=== PATIENT | female | born 1980 | race Caucasian/White ===

== ENCOUNTER 2019-10-10 18:19 | Emergency (ER) | payer OTHER, MEDICAID ==
[~2019-10-10] VITALS: Ht 160 cm; Wt 105.8 kg
--- NOTE | 2019-10-10 18:43 | ED GU-Female ---
General Chief Complaint: Female Reproductive Stated Complaint: VAGINAL BLEEDING/OB Source: patient Exam Limitations: no limitations History of Present Illness Date Seen by Provider: Oct 10, 2019 Time Seen by Provider: 18:39 Initial Comments 39-year-old at 6 weeks and EDC of June 05, presents with vaginal spotting occurring just prior to arrival. When using the restroom, she noticed on toilet tissue. Denies any specific abdominal pain, however she does admit for the last week she's had intermittent lower abdominal cramping without bleeding. She did have intercourse 2 days ago without any trauma or pain. OB is Dr Blanca Allergies and Home Medications Patient Home Medication List Home Medication List Reviewed: Yes Review of Systems Review of Systems Constitutional: No fever, No malaise, No weakness Cardiovascular: No chest pain, No edema, No palpitations Gastrointestinal: No abdominal pain, No constipation, No diarrhea, No loss of appetite, No nausea, No vomiting Genitourinary: see HPI; denies dysuria, denies frequency, denies flank pain Musculoskeletal: No back pain, No joint pain Skin: No change in color, No rash Past Kvjuiye-Qgocvp-Pnmyaw Hx Past Med/Social Hx: Reviewed Nursing Past Med/Soc Hx Patient Social History Recent Foreign Travel: No Contact w/Someone Who Travel: No Physical Exam Vital Signs Vital Signs - First Documented 10/10/19 18:25 Temp 36.8 Pulse 67 Resp 16 B/P (MAP) 121/78 (92) Pulse Ox 98 O2 Delivery Room Air Capillary Refill : Height, Weight, BMI Height: '" Weight: lbs. oz. kg; BMI Method: General Appearance: WD/WN, no apparent distress Cardiovascular: regular rate, rhythm, no edema Respiratory: chest non-tender, lungs clear Gastrointestinal: non tender, soft; No distended, No guarding, No rebound, No tenderness Progress/Results/Core Measures Suspected Sepsis SIRS Temperature: Pulse: Respiratory Rate: Blood Pressure / Mean: Results/Orders Lab Results Laboratory Tests Test 10/10/19 18:30 10/10/19 18:35 Range/Units Urine Color VIKRAM H Urine Clarity CLOUDY Urine pH 5.5 5-9 Urine Specific [place] >=1.030 1.016-1.022 Urine Protein TRACE H NEGATIVE Urine Glucose (UA) NEGATIVE NEGATIVE Urine Ketones 1+ H NEGATIVE Urine Nitrite NEGATIVE NEGATIVE Urine Bilirubin 1+ H NEGATIVE Urine Urobilinogen 0.2 < = 1.0 MG/DL Urine Leukocyte Esterase NEGATIVE NEGATIVE Urine RBC (Auto) 3+ H NEGATIVE Urine RBC TNTC H /HPF Urine WBC 0-2 /HPF Urine Squamous Epithelial Cells 2-5 /HPF Urine Crystals NONE /LPF Urine Bacteria FEW H /HPF Urine Casts NONE /LPF Urine Mucus SMALL H /LPF Urine Culture Indicated NO Human Chorionic Gonadotropin, Quant 96453 H <5 MIU/ML My Orders Orders - TIGIST MIR DO Hcg,Quantitative (10/10/19 18:38) Urinalysis (10/10/19 18:38) Vital Signs/I&O 10/10/19 10/10/19 18:25 19:44 Temp 36.8 Pulse 67 68 Resp 16 18 B/P (MAP) 121/78 (92) 120/80 Pulse Ox 98 99 O2 Delivery Room Air Room Air Capillary Refill : Progress Note : Progress Note Explained to the patient due to limitations at this facility we do not have ultrasound capability to evaluate her only . She understands this limitation of her evaluation today. Discussed and advised importance of follow- up in 2 days with OB or sooner if bleeding becomes more severe or painful. Quant - 50k (c/w dates) Departure Impression Primary Impression: Threatened miscarriage in early Disposition: 01 HOME, SELF-CARE Condition: Stable Departure-Patient Inst. Referrals: NO,LOCAL PHYSICIAN (PCP/Family) Primary Care Physician Add. Discharge Instructions: See Dr Blanca in 2 days for re-evaluation of your vaginal bleeding. You will need a repeat "Quant HCG" All discharge instructions reviewed with patient and/or family. Voiced understanding. TIGIST MIR DO Oct 10, 2019 18:43
[2019-10-10 18:56] LABS: CLARITY,URINE CLOUDY; COLOR,URINE AMBER; GLUCOSE, URINE (UA) NEGATIVE (NEGATIVE); KETONES,URINE 1+ (NEGATIVE); NITRITE,URINE NEGATIVE (NEGATIVE); PH,URINE 5.5 (5-9); PROTEIN,URINE TRACE (NEGATIVE)
[2019-10-10 18:57] LABS: BACTERIA,URINE FEW /HPF; BILIRUBIN,URINE 1+ (NEGATIVE); LEUKOCYTE ESTERASE ,URINE NEGATIVE (NEGATIVE); RBC,URINE TNTC /HPF; WBC,URINE 0-2 /HPF
--- NOTE | 2019-10-10 18:57 | NUR ---
Report to Sarai MARSH.
[2019-10-10 19:44] VITALS: BP 120/80
--- OUTSIDE RECORDS SUMMARY | 2019-10-10 21:53 | XMS REPORT | Continuity of Care Document ---
Author Organization Unknown Address Unknown Phone Unavailable Allergies There is no data. Medications There is no data. Problems There is no data. Procedures There is no data. Results Test Result Range GC/CHLAMYDIA (SWAB OR URINE)-RAPID - 09:36 CHLAMYDIA TRACHOMATIS RNA, TMA NOT DETECTED NOT DETECTED NEISSERIA GONORRHOEAE RNA, TMA NOT DETECTED NOT DETECTED COMMENT NRG SUREPATH PAP RFX HPV mRNA E6/E7 - 09:36 CLINICAL INFORMATION: NRG LMP: NRG PREV. PAP: NRG PREV. 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 COMMENT NRG ANTI C3 AND ANTI IGG - 09/27/19 14:57 ANTI COMPLEMENT POSITIVE NEGATIVE ANTI-IGG NEGATIVE NEGATIVE Complete urinalysis with reflex to cultu re - 10/10/19 18:30 Urine color determination VIKRAM NRG Urine clarity determination CLOUDY NR G Urine pH measurement by test strip 5.5 5-9 Specific gravity of urine by test strip >= 1.016-1.022 Urine protein assay by test strip, semi-quantitative TRACE NEGATIVE Urine glucose detection by automated test strip NE GATIVE NEGATIVE Erythrocytes detection in urine sediment by light micr oscopy 3+ NEGATIVE Urine ketones detection by automated test strip 1+ NEGATIVE Urine nitrite detection by test strip NEGATIVE NEGATIVE Urine total bilirubin detection by test strip 1+ NEGATIVE Urine urobilinogen measurement by automated test strip (mass/volume) 0.2 mg/dL < = 1.0 Urine leukocyte esterase detection by dipstick NEG ATIVE NEGATIVE Automated urine sediment erythrocyte cou nt by microscopy (number/high power field) TNTC NRG Automated urine sediment leukocyte count by microscopy (number/high power field) [HPF] NRG Bacteria detection in urine sediment by light microsco py FEW NRG Squamous epithelial cells detection in u rine sediment by light microscopy 2-5 NRG Crystals detection in urine sediment by light microsco py NONE NRG Casts detection in urine sediment by light microscopy NONE NRG Mucus detection in urine sediment by light microscopy SMALL NRG Complete urinalysis with reflex to culture NO NRG Serum or plasma choriogonadotropin measu rement (units/volume) - 10/10/19 18:35 Serum or plasma choriogonadotropin measurement (units/ volume) 46090 m[iU]/mL <5 Encounters ACCT No. Visit Date/Time Discharge Status Pt. Type Provider Facility Loc./Unit Complaint [id number] 09/27/2019 13:45:00 09/27/2019 23:59:5 9 [facility] Outpatient FELTON HUSAIN [facility] [id number] 09/27/2019 13:45:00 Document Registration [id number] 10/10/2019 18:22:00 020 19:44:00 DIS Emergency TIGIST MIR DO [facility] ER FS VAGINAL BLEEDIN G/OB
== END 2019-10-10 19:44 | disposition home or self-care (01) ==
LOC: ER FS 18:22
DX: O20.0 Threatened abortion (principal); Z3A.01 Less than 8 weeks gestation of pregnancy
CPT/HCPCS: 36415; 81000; 84702; 99282

== ENCOUNTER 2021-07-19 01:36 | Emergency (ER) | payer OTHER, MEDICAID ==
[~2021-07-19] VITALS: Ht 162 cm; Wt 84.0 kg
--- NOTE | 2021-07-19 01:56 | ED EENT ---
History of Present Illness General Chief Complaint: Foreign Body Stated Complaint: SOMETHING IN L EAR Nursing Triage Note: Patient states she can feel something moving in her left ear. She states incident occurred approximately one hour ago. History of Present Illness Date Seen by Provider: Jul 19, 2021 Time Seen by Provider: 01:40 Initial Comments 41-year-old female presents with foreign body in her left ear. Patient reports that she can feel something moving her left ear. That started about an hour ago. Patient reports that cause her some pain. No other complaints Allergies and Home Medications Patient Home Medication List Home Medication List Reviewed: Yes Review of Systems Review of Systems Constitutional: see HPI Ears: See HPI Nose: no symptoms reported Mouth: no symptoms reported Throat: no symptoms reported Respiratory: no symptoms reported Cardiovascular: no symptoms reported Gastrointestinal: no symptoms reported Past Jqchsow-Tlbofe-Cbcgbf Hx Patient Social History Tobacco Use?: No Use of E-Cig and/or Vaping dev: Yes Substance use?: No Alcohol Use?: No Seasonal Allergies Seasonal Allergies: No Past Medical History Surgery/Hospitalization HX: Surgeries: Yes (C/S x 3, Carpal tunnel bilateral) Section, Orthopedic Respiratory: No Cardiac: No Neurological: No Gastrointestinal: No Musculoskeletal: No Endocrine: No HEENT: No Cancer: No Psychosocial: No Integumentary: No Blood Disorders: No Physical Exam Vital Signs Vital Signs - First Documented 07/19/21 01:44 Pulse 70 Resp 16 B/P (MAP) 144/85 (104) Pulse Ox 97 O2 Delivery Room Air Height, Weight, BMI Height: '" Weight: lbs. oz. kg; 32.00 BMI Method: General Appearance: WD/WN, no apparent distress Ears: left ear foreign body (Insect) Neck: full range of motion Cardiovascular: normal peripheral pulses, regular rate, rhythm Neurologic/Psychiatric: alert, normal mood/affect, oriented x 3 Skin: normal color, warm/dry Procedures/Interventions Ear : Ear Location: Left Foreign Body Removal: FB in the Ear Canal Use of: Forceps Progress/Conclusion Patient with insect in left ear. Insect was killed using lidocaine and then removed with alligator forceps. Patient tolerated with no immediate complication Progress/Results/Core Measures Results/Orders Vital Signs/I&O 07/19/21 01:44 Pulse 70 Resp 16 B/P (MAP) 144/85 (104) Pulse Ox 97 O2 Delivery Room Air Blood Pressure Mean: 104 Departure Impression Primary Impression: Foreign body in ear Qualified Codes: T16.2XXA - Foreign body in left ear, initial encounter Disposition: 01 HOME, SELF-CARE Condition: Stable Departure-Patient Inst. Referrals: SELF,CHRISTIANO GONZALES (PCP/Family) Primary Care Physician Patient Instructions: Removal of Foreign Body in Ear, Child Add. Discharge Instructions: Follow-up with primary care provider as needed All discharge instructions reviewed with patient and/or family. Voiced understanding. Scripts Ofloxacin (Ofloxacin) 5 Ml Drops 5 ML OP BID for 7 Days, #1 EACH 5 drops to the left ear twice daily for 7 days Prov: ASHLEY CASTRO DO 07/19/21 ASHLEY CASTRO DO Jul 19, 2021 01:56
[2021-07-19] MEDS ORDERED: OFLO5DRO3 OP (02:00)
[2021-07-19 02:01] VITALS: BP 144/85
== END 2021-07-19 02:05 | disposition home or self-care (01) ==
LOC: EDUNIT# 01:36 → ER FS 01:38
DX: T16.2XXA Foreign body in left ear, initial encounter (principal)
CPT/HCPCS: 99282

== ENCOUNTER 2022-01-14 20:56 | Emergency (ER) | payer OTHER, MEDICAID ==
[~2022-01-14 20:56] MED LIST: OFLO5DRO3 OP
--- NOTE | 2022-01-14 20:59 | ED EENT ---
History of Present Illness General Stated Complaint: R EAR ISSUES History of Present Illness Date Seen by Provider: Jan 14, 2022 Time Seen by Provider: 20:59 Initial Comments 41-year-old female presents with concerns or might be some in her right ear. Patient felt something in her hair inflicted and then she thought she heard some buzzing in her ear. Maybe some movement. This happened just prior to arrival. She reports that she really does not feel it as much now but wants to have it evaluated. Allergies and Home Medications Patient Home Medication List Home Medication List Reviewed: Yes Ofloxacin (Ofloxacin) 5 Ml Drops, 5 ML OP BID Prescribed by: ASHLEY CASTRO on 07/19/21 0200 Review of Systems Review of Systems Constitutional: no symptoms reported Ears: See HPI Nose: no symptoms reported Respiratory: no symptoms reported Cardiovascular: no symptoms reported Gastrointestinal: no symptoms reported Past Jgvvelw-Skharo-Wuvbba Hx Seasonal Allergies Seasonal Allergies: No Past Medical History Surgery/Hospitalization HX: Surgeries: Yes (C/S x 3, Carpal tunnel bilateral) Section, Orthopedic Respiratory: No Cardiac: No Neurological: No Gastrointestinal: No Musculoskeletal: No Endocrine: No HEENT: No Cancer: No Psychosocial: No Integumentary: No Blood Disorders: No Physical Exam Height, Weight, BMI Height: '" Weight: lbs. oz. kg; 32.00 BMI Method: General Appearance: WD/WN Ears: bilateral ear canal normal, bilateral ear TM normal Cardiovascular: normal peripheral pulses, regular rate, rhythm Respiratory: no respiratory distress, no accessory muscle use Neurologic/Psychiatric: alert, normal mood/affect Skin: normal color, warm/dry Progress/Results/Core Measures Progress Progress Note : Progress Note Patient with no foreign body or insect in her ear. Patient discharged home Departure Impression Primary Impression: Ear discomfort Qualified Codes: H92.01 - Otalgia, right ear Disposition: HOME, SELF-CARE Condition: Stable Departure-Patient Inst. Referrals: SELF,CHRISTIANO GONZALES (PCP/Family) Primary Care Physician Add. Discharge Instructions: Follow-up with your primary care provider as needed ASHLEY CASTRO DO Jan 14, 2022 20:59
[2022-01-14 21:04] VITALS: BP 135/86
== END 2022-01-14 21:08 | disposition home or self-care (01) ==
LOC: EDUNIT# 20:56 → ER FS 20:57
DX: H92.01 Otalgia, right ear (principal); Z28.310 Unvaccinated for COVID-19
CPT/HCPCS: 99281

== ENCOUNTER 2022-05-30 03:39 | Emergency (ER) | payer OTHER, MEDICAID ==
[~2022-05-30] VITALS: Ht 167 cm; Wt 92.0 kg
--- NOTE | 2022-05-30 03:57 | ED GI ---
General Stated Complaint: ABDO PAIN History of Present Illness Date Seen by Provider: May 30, 2022 Time Seen by Provider: 03:51 Initial Comments 42-year-old female is here with complaints of abdominal pain which began around midnight, along with gas and indigestion. Patient had tacos for dinner. Abdominal pain is generalized but mainly in the the upper half of the abdomen. Denies fever or chills, nausea, vomiting, chest pain, palpitations, shortness of breath, diarrhea, constipation. No known sick contacts. Allergies and Home Medications Allergies Coded Allergies: No Known Drug Allergies (Unverified , 05/30/22) Patient Home Medication List Home Medication List Reviewed: Yes Ofloxacin (Ofloxacin) 5 Ml Drops, 5 ML OP BID Prescribed by: ASHLEY CASTRO on 07/19/21 0200 Review of Systems Review of Systems Constitutional: no symptoms reported EENTM: No Symptoms Reported Respiratory: No Symptoms Reported Cardiovascular: No Symptoms Reported Gastrointestinal: Abdominal Pain Genitourinary: No Symptoms Reported Musculoskeletal: no symptoms reported Skin: no symptoms reported Psychiatric/Neurological: No Symptoms Reported Endocrine: No Symptoms Reported Hematologic/Lymphatic: No Symptoms Reported Past Kqnozws-Gaspqo-Hpgpqt Hx Seasonal Allergies Seasonal Allergies: No Past Medical History Surgery/Hospitalization HX: Surgeries: Yes (C/S x 3, Carpal tunnel bilateral) Section, Orthopedic Respiratory: No Cardiac: No Neurological: No Gastrointestinal: No Musculoskeletal: No Endocrine: No HEENT: No Cancer: No Psychosocial: No Integumentary: No Blood Disorders: No Physical Exam Vital Signs Vital Signs - First Documented 05/30/22 03:49 Temp 37.0 Pulse 57 Resp 18 B/P (MAP) 156/83 (107) Pulse Ox 97 O2 Delivery Room Air Capillary Refill : Height/Weight/BMI Height: '" Weight: lbs. oz. kg; 32.00 BMI Method: General Appearance: WD/WN, no apparent distress, obese HEENT: PERRL/EOMI Neck: non-tender Respiratory: lungs clear Cardiovascular: normal peripheral pulses, regular rate, rhythm Gastrointestinal: normal bowel sounds, soft, tenderness (Generalized abdominal tenderness present) Extremities: normal range of motion Back: normal inspection, no CVA tenderness, no vertebral tenderness Neurologic/Psychiatric: alert, normal mood/affect, oriented x 3 Skin: normal color Progress/Results/Core Measures Results/Orders Lab Results Laboratory Tests Test 05/30/22 03:54 05/30/22 04:20 Range/Units White Blood Count 8.0 4.3-11.0 10^3/uL Red Blood Count 4.90 3.80-5.11 10^6/uL Hemoglobin 12.8 11.5-16.0 g/dL Hematocrit 39 35-52 % Mean Corpuscular Volume 79 L 80-99 fL Mean Corpuscular Hemoglobin 26 25-34 pg Mean Corpuscular Hemoglobin Concent 33 32-36 g/dL Red Cell Distribution Width 13.4 10.0-14.5 % Platelet Count 241 130-400 10^3/uL Mean Platelet Volume 9.2 9.0-12.2 fL Immature Granulocyte % (Auto) 0 % Neutrophils (%) (Auto) 54 42-75 % Lymphocytes (%) (Auto) 29 12-44 % Monocytes (%) (Auto) 12 0-12 % Eosinophils (%) (Auto) 4 0-10 % Basophils (%) (Auto) 1 0-10 % Neutrophils # (Auto) 4.3 1.8-7.8 10^3/uL Lymphocytes # (Auto) 2.3 1.0-4.0 10^3/uL Monocytes # (Auto) 1.0 0.0-1.0 10^3/uL Eosinophils # (Auto) 0.3 0.0-0.3 10^3/uL Basophils # (Auto) 0.0 0.0-0.1 10^3/uL Immature Granulocyte # (Auto) 0.0 0.0-0.1 10^3/uL Sodium Level 138 135-145 MMOL/L Potassium Level 4.1 3.6-5.0 MMOL/L Chloride Level 105 98-107 MMOL/L Carbon Dioxide Level 23 21-32 MMOL/L Anion Gap 10 5-14 MMOL/L Blood Urea Nitrogen 13 7-18 MG/DL Creatinine 0.78 0.60-1.30 MG/DL Estimat Glomerular Filtration Rate 98 BUN/Creatinine Ratio 17 Glucose Level 108 H 70-105 MG/DL Calcium Level 8.6 8.5-10.1 MG/DL Corrected Calcium 8.9 8.5-10.1 MG/DL Total Bilirubin 0.2 0.1-1.0 MG/DL Aspartate Amino Transf (AST/SGOT) 14 5-34 U/L Alanine Aminotransferase (ALT/SGPT) 16 0-55 U/L Alkaline Phosphatase 71 40-136 U/L Total Protein 6.2 L 6.4-8.2 GM/DL Albumin 3.6 3.2-4.5 GM/DL Lipase 58 8-78 U/L Urine Color YELLOW Urine Clarity CLEAR Urine pH 6.0 5-9 Urine Specific [place] >=1.030 1.016-1.022 Urine Protein NEGATIVE NEGATIVE Urine Glucose (UA) NEGATIVE NEGATIVE Urine Ketones NEGATIVE NEGATIVE Urine Nitrite NEGATIVE NEGATIVE Urine Bilirubin NEGATIVE NEGATIVE Urine Urobilinogen 0.2 < = 1.0 MG/DL Urine Leukocyte Esterase NEGATIVE NEGATIVE Urine RBC (Auto) NEGATIVE NEGATIVE Urine RBC 2-5 H /HPF Urine WBC 0-2 /HPF Urine Squamous Epithelial Cells 5-10 /HPF Urine Crystals NONE /LPF Urine Bacteria MODERATE H /HPF Urine Casts NONE /LPF Urine Mucus LARGE H /LPF Urine Yeast FEW H /HPF Urine Culture Indicated YES Urine Opiates Screen NEGATIVE NEGATIVE Urine Oxycodone Screen NEGATIVE NEGATIVE Urine Methadone Screen NEGATIVE NEGATIVE Urine Propoxyphene Screen NEGATIVE NEGATIVE Urine Barbiturates Screen NEGATIVE NEGATIVE Ur Tricyclic Antidepressants Screen NEGATIVE NEGATIVE Urine Phencyclidine Screen NEGATIVE NEGATIVE Urine Amphetamines Screen NEGATIVE NEGATIVE Urine Methamphetamines Screen NEGATIVE NEGATIVE Urine Benzodiazepines Screen NEGATIVE NEGATIVE Urine Cocaine Screen NEGATIVE NEGATIVE Urine Cannabinoids Screen NEGATIVE NEGATIVE My Orders Orders - ALVIN FLEMING MD Cbc With Automated Diff (05/30/22 03:57) Comprehensive Metabolic Panel (05/30/22 03:57) Drug Screen Stat (Urine) (05/30/22 03:57) Lipase (05/30/22 03:57) Ua Culture If Indicated (05/30/22 03:57) Famotidine Injection (Pepcid Injection) (05/30/22 04:09) Ed Iv/Invasive Line Start (05/30/22 04:09) Antacid Suspension (Mylanta Suspension (05/30/22 04:15) Diphenhydramine Oral Soln (Benadryl Oral (05/30/22 04:15) Lidocaine 2% Viscous 15 Ml (Xylocaine Vi (05/30/22 04:15) Ct Abdomen/Pelvis W (05/30/22 04:29) Urine Culture (05/30/22 04:20) Iohexol Injection (Omnipaque 350 Mg/Ml 1 (05/30/22 05:00) Received Contrast (Hold Metformin- Contr (05/30/22 05:00) Sodium Chloride Flush (Catheter Flush Sy (05/30/22 05:00) Ns (Ivpb) (Sodium Chloride 0.9% Ivpb Bag (05/30/22 05:00) Medications Given in ED Current Medications Medications Dose Ordered Sig/Yo Route Start Time Stop Time Status Last Admin Dose Admin Al Hydrox/Mg Hydrox/Simethicone 30 ml ONCE ONCE PO 05/30/22 04:15 05/30/22 04:16 DC 05/30/22 04:33 30 ML Diphenhydramine HCl 12.5 mg ONCE ONCE PO 05/30/22 04:15 05/30/22 04:16 DC 05/30/22 04:33 12.5 MG Iohexol 100 ml ONCE ONCE IV 05/30/22 05:00 05/30/22 05:01 DC 05/30/22 04:49 80 ML Lidocaine HCl 5 ml ONCE ONCE PO 05/30/22 04:15 05/30/22 04:16 DC 05/30/22 04:33 5 ML Sodium Chloride 10 ml NEEDED PRN IV 05/30/22 05:00 05/30/22 04:49 10 ML Sodium Chloride 100 ml ONCE ONCE IV 05/30/22 05:00 05/30/22 05:01 DC 05/30/22 04:49 100 ML Vital Signs/I&O 05/30/22 03:49 Temp 37.0 Pulse 57 Resp 18 B/P (MAP) 156/83 (107) Pulse Ox 97 O2 Delivery Room Air Progress Progress Note : Progress Note 1. ACUTE CHOLELITHIASIS WITH CHOLECYSTITIS: - CT ABDOMEN: Acute cholelithiasis with cholecystitis - CBC/ CMP: unremarkable - UA normal - Lipase normal - Pepcid 20mg iv STAT - GI cocktail STAT - Toradol 15mg iv STAT -Discussed with Dr. Berrios, general surgeon, and will discharge patient with Cipro/Flagyl prescription. Patient to follow-up in surgery clinic on 06/02/2022 at 2 PM. -The patient was seen in the ED, and treated appropriately to presentation at a specific point in time. Patient is informed that there is a possibility that disease and illness can evolve and change in acuity rapidly or slowly after patient is discharged from the ER. Precautionary advice given to the patient for immediate return to ER if symptoms worsen or do not resolve, and to seek emergency care sooner rather than later. Pt also advised on the importance of PCP follow up and compliance with management and follow up plan with PCP and/or specialist, as this is part of the management plan. Pt verbally expressed understanding. Diagnostic Imaging Diagonstic Imaging: CT Plain Films/CT/US/NM/MRI: abdomen Comments [facility] [place], [place] NAME: STALIN GUEVARA [facility] REC#: [id number] PT STATUS: REG ER : 1980 PHYSICIAN: ALVIN FLEMING MD ADMIT DATE: 05/30/22/ER FS Signed Date of Exam:05/30/22 CT ABDOMEN/PELVIS W CT ABDOMEN/PELVIS W TECHNIQUE: Multiple contiguous axial images were obtained through the abdomen and pelvis after administration of intravenous contrast. All CT scans use one or more of the following dose optimizing techniques: automated exposure control, MA and/or KvP adjustment based on patient size and exam type or iterative reconstruction. INDICATION: Generalized abdominal pain COMPARISON: None available. FINDINGS: Lower chest: The lung bases are clear. No pericardial or pleural effusion. Peritoneum: No free intraperitoneal air or fluid. Liver and biliary system: The liver is normal. Gallbladder is distended with multiple gallstones present. Additionally, there is pericholecystic fluid present. No biliary duct dilation. Spleen and Pancreas: Spleen is normal. The pancreas enhances normally without mass lesion or peripancreatic inflammatory changes. Adrenals: Normal. tract: The kidneys enhance normally without suspicious mass or obstruction. Urinary bladder is partially distended with mild wall thickening and mild surrounding inflammation. Uterus and ovaries are normal in appearance. GI tract: Stomach is filled with fluid and food debris. No bowel obstruction. No pericolonic inflammatory changes. Appendectomy. Vasculature and Lymph nodes: Normal caliber aorta. No abdominal or pelvic lymphadenopathy. Musculoskeletal: No concerning osseous lesion. IMPRESSION: 1. Cholelithiasis with CT features highly suggestive of acute cholecystitis. Correlation for right upper quadrant pain is advised. 2. Urinary bladder has imaging features raise the possibility of cystitis. Correlation with urinalysis is recommended. Dictated by: Dictated on workstation # [id number] Dict: 05/30/22 0556 Trans: 05/30/22 0615 REINA [id number] Interpreted by: AL PANIAGUA MD Electronically signed by: AL PANIAGUA MD 05/30/22 0615 Departure Impression Primary Impression: Cholecystitis, acute with cholelithiasis Qualified Codes: K80.00 - Calculus of gallbladder with acute cholecystitis without obstruction Disposition: HOME, SELF-CARE Condition: Stable Departure-Patient Inst. Referrals: TAMMIE EBRRIOS MD SELF,CHRISTIANO GONZALES (PCP/Family) Primary Care Physician Patient Instructions: Gallbladder Diet, Gallstones, Gallstones ED Add. Discharge Instructions: -Discussed with Dr. Berrios, general surgeon, and will discharge patient with Cipro/Flagyl prescription. Patient to follow-up in surgery clinic on 06/02/2022 at 2 PM. -Advised pain control with ibuprofen and Tylenol. Scripts Metronidazole (Metronidazole) 500 Mg Tablet 500 MG PO Q12H for 7 Days, #14 TAB Prov: ALVIN FLEMING MD 05/30/22 Ciprofloxacin HCl (Cipro) 500 Mg Tablet 500 MG PO Q12H for 7 Days, #14 TAB Prov: ALVIN FLEMING MD 05/30/22 Work/School Note: Work Release Form Date Seen in the Emergency Department: May 30, 2022 Return to Work: Jun 03, 2022 Restrictions: No Restrictions ALVIN FLEMING MD May 30, 2022 03:57
[2022-05-30 04:00] LABS: BASOPHILS % (AUTO) 1 % (0-10); EOSINOPHILS # (AUTO) 0.3 10^3/uL (0.0-0.3); EOSINOPHILS % (AUTO) 4 % (0-10); HEMATOCRIT 39 % (35-52); HEMOGLOBIN 12.8 g/dL (11.5-16.0); LYMPHOCYTES # (AUTO) 2.3 10^3/uL (1.0-4.0); LYMPHOCYTES % (AUTO) 29 % (12-44); MEAN CORPUSCULAR HEMOGLOBIN 26 pg (25-34); MEAN CORPUSCULAR HGB CONC 33 g/dL (32-36); MEAN CORPUSCULAR VOLUME 79 fL (80-99); MEAN PLATELET VOLUME 9.2 fL (9.0-12.2); MONOCYTES % (AUTO) 12 % (0-12); NEUTROPHILS # (AUTO) 4.3 10^3/uL (1.8-7.8); NEUTROPHILS % (AUTO) 54 % (42-75); PLATELET COUNT 241 10^3/uL (130-400)
[2022-05-30] MEDS ORDERED: FAMOTIDINE 20MG/2ML IV (PEPCID) IV STA (04:09)
[2022-05-30] MEDS ORDERED: ANTACID SUSP 30 ML UDC (MYLANTA) PO ONE (04:15)
[2022-05-30] MEDS ORDERED: diphenhydrAMINE 12.5 MG/5 ML UDC (BENADRYL) PO ONE (04:15)
[2022-05-30] MEDS ORDERED: LIDOCAINE 2% VISCOUS 15 ML UDC PO ONE (04:15)
[2022-05-30 04:21] LABS: POTASSIUM 4.1 MMOL/L (3.6-5.0)
[2022-05-30 04:22] LABS: ALBUMIN 3.6 GM/DL (3.2-4.5); BILIRUBIN,TOTAL 0.2 MG/DL (0.1-1.0); CALCIUM 8.6 MG/DL (8.5-10.1); CREATININE SERUM 0.78 MG/DL (0.60-1.30); TOTAL PROTEIN 6.2 GM/DL (6.4-8.2)
[2022-05-30 04:27] LABS: BILIRUBIN,URINE NEGATIVE (NEGATIVE); CLARITY,URINE CLEAR; COLOR,URINE YELLOW; GLUCOSE, URINE (UA) NEGATIVE (NEGATIVE); KETONES,URINE NEGATIVE (NEGATIVE); LEUKOCYTE ESTERASE ,URINE NEGATIVE (NEGATIVE); NITRITE,URINE NEGATIVE (NEGATIVE); PROTEIN,URINE NEGATIVE (NEGATIVE)
[2022-05-30 04:30] LABS: BACTERIA,URINE MODERATE /HPF; WBC,URINE 0-2 /HPF
[2022-05-30 04:31] LABS: YEAST,URINE FEW /HPF
[2022-05-30 04:37] LABS: AMPHETAMINE SCREEN, URINE NEGATIVE (NEGATIVE); BARBITURATE SCREEN URINE NEGATIVE (NEGATIVE); BENZODIAZEPINES SCREEN URINE NEGATIVE (NEGATIVE); CANNABINOID SCREEN, URINE NEGATIVE (NEGATIVE); COCAINE SCREEN URINE NEGATIVE (NEGATIVE); METHADONE STAT NEGATIVE (NEGATIVE); OPIATE SCREEN URINE NEGATIVE (NEGATIVE); OXYCODONE STAT NEGATIVE (NEGATIVE); PROPOXYPHENE STAT NEGATIVE (NEGATIVE); TRICYCLIC ANTIDEPRESSANTS SCRE NEGATIVE (NEGATIVE)
[2022-05-30] MEDS ORDERED: IOHEXOL 350 MG/ML 100 ML (OMNIPAQUE 350) VIAL IV ONE (05:00)
[2022-05-30] MEDS ORDERED: HOLD METFORMIN - RECEIVED CONTRAST 20 ML VIAL IV SCH (05:00)
[2022-05-30] MEDS ORDERED: NS 100 ML (IVPB) BAG IV ONE (05:00)
[2022-05-30] MEDS ORDERED: CATHETER FLUSH 10 ML SYR IV PRN (05:00)
--- NOTE | 2022-05-30 06:05 | Diagnostic Imaging Report ---
CT ABDOMEN/PELVIS W TECHNIQUE: Multiple contiguous axial images were obtained through the abdomen and pelvis after administration of intravenous contrast. All CT scans use one or more of the following dose optimizing techniques: automated exposure control, MA and/or KvP adjustment based on patient size and exam type or iterative reconstruction. INDICATION: Generalized abdominal pain COMPARISON: None available. FINDINGS: Lower chest: The lung bases are clear. No pericardial or pleural effusion. Peritoneum: No free intraperitoneal air or fluid. Liver and biliary system: The liver is normal. Gallbladder is distended with multiple gallstones present. Additionally, there is pericholecystic fluid present. No biliary duct dilation. Spleen and Pancreas: Spleen is normal. The pancreas enhances normally without mass lesion or peripancreatic inflammatory changes. Adrenals: Normal. tract: The kidneys enhance normally without suspicious mass or obstruction. Urinary bladder is partially distended with mild wall thickening and mild surrounding inflammation. Uterus and ovaries are normal in appearance. GI tract: Stomach is filled with fluid and food debris. No bowel obstruction. No pericolonic inflammatory changes. Appendectomy. Vasculature and Lymph nodes: Normal caliber aorta. No abdominal or pelvic lymphadenopathy. Musculoskeletal: No concerning osseous lesion. IMPRESSION: 1. Cholelithiasis with CT features highly suggestive of acute cholecystitis. Correlation for right upper quadrant pain is advised. 2. Urinary bladder has imaging features raise the possibility of cystitis. Correlation with urinalysis is recommended. Dictated by: Dictated on workstation # [id number]
[2022-05-30] MEDS ORDERED: KETOROLAC 15 MG/ML VIAL IVP ONE (07:00)
[2022-05-30] MEDS ORDERED: CIPR-225 PO (07:03)
[2022-05-30] MEDS ORDERED: METR-145 PO (07:03)
[2022-05-30 07:18] VITALS: BP 146/80
== END 2022-05-30 07:18 | disposition home or self-care (01) ==
LOC: EDUNIT# 03:39 → ER FS 03:42
DX: K80.00 Calculus of gallbladder with acute cholecystitis without obstruction (principal); E66.9 Obesity, unspecified; Z68.32 Body mass index [BMI] 32.0-32.9, adult; Z28.310 Unvaccinated for COVID-19
CPT/HCPCS: 36415; 74177; 80053; 80306; 81000; 83690; 85025; 87088

== ENCOUNTER 2022-06-07 05:28 | Outpatient (CLI) | payer OTHER, MEDICAID ==
[~2022-06-07] VITALS: Ht 158 cm; Wt 106.6 kg
[~2022-06-07 05:28] MED LIST changes: +CIPR-225 PO; +METR-145 PO
== END 2022-06-08 16:27 | disposition home or self-care (01) ==
LOC: PREOP 05:28
PROVIDERS: ATTEND Surgery
DX: Z01.818 Encounter for other preprocedural examination (principal)

== ENCOUNTER 2022-06-10 10:59 | Day surgery (SDC) | payer OTHER, MEDICAID ==
[2022-06-10] VITALS (11 sets, daily range): BP systolic 116–159; BP diastolic 62–95
[~2022-06-10] VITALS: Ht 157.4 cm; Wt 106.6 kg
[2022-06-10] MEDS ORDERED: ceFAZolin INJECTION 2,000 MG in NS (IVPB) 50 ML IV ONE (11:30)
[2022-06-10] MEDS: LACTATED RINGERS 1,000 ML IV PRN ×2 (11:32→12:43)
[2022-06-10] MEDS ORDERED: LIDOCAINE PF 2% 5 ML (XYLOCAINE) VIAL ONE (11:41)
[2022-06-10] MEDS ORDERED: MIDAZOLAM 2 MG/2 ML (VERSED) VIAL ONE (11:41)
[2022-06-10] MEDS ORDERED: BUP/EPI 0.25% 1:200,000 (MARCAINE) 30 ML VIAL ONE (11:41)
[2022-06-10] MEDS ORDERED: proPOfol 200 MG/20 ML (DIPRIVAN) VIAL IV ONE (11:41)
[2022-06-10] MEDS ORDERED: NEOSTIGMINE 3 MG/3 ML VIAL ONE (11:41)
[2022-06-10] MEDS ORDERED: GLYCOPYRROLATE 0.2 MG/ML (ROBINUL) 2 ML VIAL ONE (11:41)
[2022-06-10] MEDS ORDERED: fentaNYL INJ 100 MCG/2 ML AMP ONE ×2 (11:41→12:51)
[2022-06-10] MEDS ORDERED: ROCURONIUM 50 MG/5 ML (ZEMURON) VIAL IV ONE (11:41)
[2022-06-10] MEDS ORDERED: ONDANSETRON 4 MG/2 ML (SDV) Z0FRAN ONE ×2 (11:41→13:38)
[2022-06-10] MEDS ORDERED: ACETAMINOPHEN 325 MG TABLET PO PRN (11:45)
[2022-06-10] MEDS ORDERED: HYDROcodone/APAP 5 MG/325 MG (LORTAB) TAB PO ONE (11:45)
[2022-06-10] MEDS ORDERED: ONDANSETRON 4 MG/2 ML (SDV) Z0FRAN IVP PRN ×2 (11:45→13:45)
[2022-06-10] MEDS ORDERED: morphine INJ 10 MG/ML 1ML (SYR OR VIAL) IVP PRN (11:45)
--- NOTE | 2022-06-10 11:45 | Progress Note-Pre Operative ---
Pre-Operative Progress Note Date H&P Reviewed: Jun 10, 2022 Time H&P Reviewed: 11:40 History & Physical: H&P Reviewed, Patient Examed, No changes noted Pre-Operative Diagnosis: Chronic calculous cholecystitis SHAHRAM MARTINEZ APRN Jun 10, 2022 11:45
[2022-06-10] MEDS ORDERED: HYDR-3817 PO (11:47)
--- NOTE | 2022-06-10 11:47 | Discharge Inst-Surgical ---
D/C Lap Instructions-KIDO Reconcile Patient Problems Problems Reviewed?: Yes New, Converted, or Re-Newed RX: RX on Chart Follow Up Appt in 2 weeks Activity as tolerated No driving for 24 hours No driving while on pain medications Incentive Spirometry use every 2 hours while awake Regular Diet Symptoms to Report: Fever over 101 degree F, Nausea/Vomiting Infection Signs and Symptoms to report: Increased redness, Foul odor of wound, Increased drainage Bathing instructions: May shower Operative Area Clean/Dry; Keep incision clean/dry If any problems/questions: Contact your physician or go to Emergency Room SHAHRAM MARTINEZ APRN Jun 10, 2022 11:47
[2022-06-10] MEDS ORDERED: BUP/EPI 0.25% 1:200,000 (MARCAINE) 30 ML VIAL INJ ONE (12:18)
[2022-06-10] MEDS ORDERED: SEVOFLURANE (ULTANE) 15 ML INHAL SOLN ONE (13:26)
--- NOTE | 2022-06-10 13:31 | Progress Note-Post Operative ---
Post-Operative Progess Note Surgeon (s)/Mine Wedge Sawyer (s) Surgeon TAMMIE WRIGHT MD Mine Wedge Sawyer: ulisses garrett INFORMATION SYSTEMS MANAGER Pre-Operative Diagnosis Chronic calculous cholecystitis Post-Operative Diagnosis acute on chronic calculous cholecystitis. Procedure & Operative Findings Date of Procedure 06/10/22 Procedure Performed/Findings laparoscopic cholecystectomy Anesthesia Type get Estimated Blood Loss Estimated blood loss (mL): minimal Specimens/Packing Specimens Removed gallbladder TAMMIE WRIGHT MD Jun 10, 2022 13:31
[2022-06-10] MEDS ORDERED: morphine INJ 10 MG/ML 1ML (SYR OR VIAL) ONE (13:38)
[2022-06-10] MEDS ORDERED: HYDROmorphone 2 MG/ML VIAL (DILAUDID) IV ONE (13:45)
[2022-06-10] MEDS ORDERED: morphine INJ 10 MG/ML 1ML (SYR OR VIAL) IVP ONE (13:45)
--- NOTE | 2022-06-10 16:51 | OPERATIVE REPORT ---
DATE OF SERVICE: 06/10/2022 ATTENDING PRIMARY CARE PHYSICIAN: Dr. Zeferino Baker. PREOPERATIVE DIAGNOSIS: Chronic calculous cholecystitis. POSTOPERATIVE DIAGNOSIS: Acute on chronic calculous cholecystitis. PROCEDURE: Laparoscopic cholecystectomy. SURGEON: Tammie Wright MD ANESTHESIA: General endotracheal. ESTIMATED BLOOD LOSS: Minimal. FINDINGS: Acute on chronic calculous cholecystitis. DISPOSITION: The patient tolerated the procedure well. INDICATIONS: The patient is a 42-year-old female who developed a significant right upper abdominal quadrant pain as well as nausea and vomiting approximately 3 weeks ago, who presented to the Emergency Department. A CT scan was performed, which did show the gallbladder wall thickening as well as gallstones consistent with calculous cholecystitis. She was able to get her pain under control and was instructed to proceed with a low fat diet. Upon further questioning, she reports that she has had multiple other issues before after eating meals with right upper abdominal quadrant pain as well as abdominal bloating and nausea; however, not as severe. DESCRIPTION OF PROCEDURE: The patient was brought to the operating room, laid supine on the table. After adequate IV pain and sedative medications and general endotracheal intubation, the abdomen was prepped and draped in standard surgical fashion. 0.5% Marcaine with epinephrine was used to anesthetize the overlying skin in the left upper abdominal quadrant and a transverse skin incision made using a #15 blade. An 0 silk suture was applied to the medial aspect of the incision for retraction and a Veress needle inserted with a low opening pressure of 0 mmHg and the abdomen was then insufflated to 15 mmHg pressure. The Veress needle removed and a 5 mm XL trocar placed followed by a 5 mm 45-degree angle laparoscope visualized the peritoneal cavity. A 4-quadrant abdominal exploration was performed. There was hepatomegaly as well as a thick omentum and a distended gallbladder as well as some gallbladder wall thickening. Under direct visualization, we then proceeded to place a supraumbilical 10 mm port after the skin and peritoneal lining were anesthetized using 0.5% Marcaine with epinephrine and a transverse skin incision made using a #15 blade. In a similar manner, a right upper abdominal quadrant 5 mm port was placed. The patient was then placed in reverse Trendelenburg position as well as planed right side up, left side down. The fundus of the gallbladder was then retracted anteriorly and superiorly. There were omental adhesions towards the gallbladder wall, which were taken down using blunt dissection as well as electrocautery on the hook instrument. The hepatoduodenal ligament was then dissected using blunt dissection as well as cautery using the hook instrument as well as the [place] dissector. The entire critical view of safety was identified including the triangle of Calot as well as the cystic duct and artery as the only 2 structures going into the gallbladder as well as the cystic plate behind the proximal gallbladder. A timeout was then taken and the cystic duct and artery were then clipped proximally, distally and cut with EndoShears. The gallbladder was then dissected off of the liver bed using cautery on the hook instrument with visualization of good hemostasis as well as no leaking ducts of Luschka. The gallbladder was removed through the 10 mm port site using an EndoCatch bag. A 10 mm port site fascia and peritoneum were then closed under direct visualization using a Ronald-Cayetano device and 0 Vicryl suture. The abdomen was desufflated and the remaining ports were removed. All skin incisions were closed using 4-0 Monocryl running subcuticular sutures. Wounds were then cleaned and covered with Dermabond. The patient tolerated the procedure well. PLAN: We will start IV and oral pain medication as well as a clear liquid diet. 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 Job ID: [id number] DocumentID: [id number] Dictated Date: 06/10/2022 13:38:33 Preschool Principal Date: 06/10/2022 16:49:00 Dictated By: TAMMIE WRIGHT MD
== END 2022-06-10 15:35 | disposition home or self-care (01) ==
LOC: SDC 10:59
PROVIDERS: ATTEND Surgery
DX: K80.12 Calculus of gallbladder with acute and chronic cholecystitis without obstruction (principal); E66.01 Morbid (severe) obesity due to excess calories; Z68.41 Body mass index [BMI] 40.0-44.9, adult; Z28.310 Unvaccinated for COVID-19
CPT/HCPCS: 84703; 87081; 88304

== ENCOUNTER 2022-12-10 14:11 | Emergency (ER) | payer OTHER, MEDICAID ==
[~2022-12-10 14:11] MED LIST changes: +HYDR-3817 PO; -OFLO5DRO3 OP; +OFLO5DRO8 OP
--- NOTE | 2022-12-10 14:23 | ED Integumentary General ---
General Chief Complaint: Bite-Animal/Human/Insect Stated Complaint: INSECT BITE; NECK SWELLING History of Present Illness Date Seen by Provider: Dec 10, 2022 Time Seen by Provider: 14:23 Initial Comments 42-year-old female presents with an insect bite on her left neck. Reports that happened 2 days ago. Is now developed some increased swelling and area of firmness. She went couple days ago to urgent care and was started on a "allergy pill" and hydrocortisone cream. She presents today because it is continue to get more swollen and scale a bit more warmth and redness to it. Allergies and Home Medications Allergies Coded Allergies: No Known Drug Allergies (Unverified , 06/08/22) Patient Home Medication List Home Medication List Reviewed: Yes Hydrocodone/Acetaminophen (Hydrocodone-Acetamin 7.5-325) 7.5 Mg-325 Mg Tablet, 1 EACH PO Q4H PRN for PAIN-BREAKTHROUGH Prescribed by: SHAHRAM MARTINEZ on 06/10/22 0057 Review of Systems Review of Systems Constitutional: no symptoms reported EENTM: no symptoms reported Respiratory: no symptoms reported Cardiovascular: no symptoms reported Gastrointestinal: no symptoms reported Musculoskeletal: no symptoms reported Skin: see HPI Psychiatric/Neurological: No Symptoms Reported Past Zueqhad-Utupou-Tihlmu Hx Seasonal Allergies Seasonal Allergies: No Past Medical History Surgery/Hospitalization HX: X4 AND APPY; Cholecysectomy Surgeries: Yes (C/S x 3, Carpal tunnel bilateral, TUBAL LIGATION) Appendectomy, Section, Orthopedic Respiratory: No Currently Using CPAP: No Currently Using BIPAP: No Cardiac: No Neurological: No Genitourinary: No Gastrointestinal: No Musculoskeletal: No Endocrine: No HEENT: No Cancer: No Psychosocial: No Integumentary: No Blood Disorders: No Physical Exam Vital Signs Capillary Refill : General Appearance: WD/WN, no apparent distress Neck: other (Small 2 cm area of induration and swelling with some mild erythema and warmth, no abscess noted) Respiratory: lungs clear, normal breath sounds Gastrointestinal: non tender, soft Neurologic/Psychiatric: alert, normal mood/affect, oriented x 3 Skin Problem Location: neck Skin Problem Character: erythema, warm Progress/Results/Core Measures Progress Progress Note : Progress Note Patient's symptoms are consistent with an infected insect bite. Patient with likely early abscess formation but no drainable abscesses is currently indurated. I will start her on Bactrim. She should follow-up next week for recheck. Return to ER as needed Departure Impression Primary Impression: Infected insect bite of head and neck Qualified Codes: S00.96XA - Insect bite (nonvenomous) of unspecified part of head, initial encounter; S10.96XA - Insect bite of unspecified part of neck, initial encounter; L08.9 - Local infection of the skin and subcutaneous tissue, unspecified; W57.XXXA - Bitten or stung by nonvenomous insect and other nonvenomous arthropods, initial encounter Disposition: HOME, SELF-CARE Condition: Stable Departure-Patient Inst. Referrals: CHRISTIANO CEDILLO MD (PCP) Primary Care Physician Patient Instructions: Cellulitis (Skin Infection), Adult (DC), Insect Bites and Stings (DC) Add. Discharge Instructions: Follow-up with your primary care provider early next week, return to ER with any concerns All discharge instructions reviewed with patient and/or family. Voiced understanding. Scripts Sulfamethoxazole/Trimethoprim (Bactrim Ds Tablet) 1 Each Tablet 1 EACH PO BID, #14 TAB Prov: ASHLEY CASTRO DO 12/10/22 ASHLEY CASTRO DO Dec 10, 2022 14:23
[2022-12-10] MEDS ORDERED: SULF1TAB38 PO (14:29)
[2022-12-10 14:31] VITALS: BP 151/100
== END 2022-12-10 14:31 | disposition home or self-care (01) ==
LOC: EDUNIT# 14:11 → ER FS 14:12
DX: S10.96XA Insect bite of unspecified part of neck, initial encounter (principal); S00.96XA Insect bite (nonvenomous) of unspecified part of head, initial encounter; L08.9 Local infection of the skin and subcutaneous tissue, unspecified; Z28.310 Unvaccinated for COVID-19; W57.XXXA Bitten or stung by nonvenomous insect and other nonvenomous arthropods, initial encounter
CPT/HCPCS: 99283